=== PATIENT | female | born 1985 | race Caucasian/White ===

== ENCOUNTER → 2017-06-10 | Outpatient (CLI) | payer OTHER ==
[2017-06-10 17:52] LABS: Appearance,Urine Cloudy (Clear); Bilirubin,Urine Negative (Negative); Glucose,Urine (UA) Negative (Negative); Ketones,Urine Negative (Negative); Leukocyte Esterase,Urine Trace (Negative); Nitrite,Urine Negative (Negative); Particle Count 1855; Protein,Urine Negative (Negative); RBC,Urine <1 /hpf (0-5); Specific Gravity,Urine 1.002 (1.001-1.035); Squamous Epithelial Cell,Urine 5 /hpf (0-4); UA Billing (MACRO vs. MICRO) MICRO; Urobilinogen,Urine <2.0 mg/dL (<2.0); WBC,Urine 1 /hpf (0-5)
--- NOTE | 2017-06-11 07:16 | US ---
EXAMINATION TYPE: US pelvic complete DATE OF EXAM: 06/10/2017 COMPARISON: [facility] 2010 CLINICAL HISTORY: R10.2 Pelvic pain. Intermittent pelvic pain, bladder urgency; endometriosis, LMP ev chad 3 months per doctor via Carlo medication; menses started today TECHNIQUE: Transvaginal (TV) and Transabdominal (TA) Date of LMP: 06/10/2017 EXAM MEASUREMENTS: Uterus: 9.8 x 4.6 x 3.9 cm Endometrial Stripe: 0.4 cm Right Ovary: 2.3 x 2.4 x 1.3 cm Left Ovary: 2.8 x 1.6 x 1.9 cm Bladder: bilateral ureteral jets seen; post void volume wnl = 31.0ml 1. Uterus: Anteverted; Nabothian cyst in CX = 0.3 x 0.3 x 0.2cm 2. Endometrium: thickness is wnl. 3. Right Ovary: multiple small follicles; small hyperechoic focus in periphery at acoustic interface . 4. Left Ovary: small follicles Spectral, color and waveform doppler imaging shows good arterial and venous flow within the ovaries ; there is no evidence for ovarian torsion. 5. Bilateral Adnexa: wnl 6. Posterior cul-de-sac: wnl Post void urinary bladder residual of 30.1. IMPRESSION: 1. Unremarkable uterus, endometrial thickness, and ovaries. 2. Small urinary bladder postvoid residual is within normal limits at 31.0.
== END | disposition home or self-care (01) ==
LOC: RADUSWWP 15:05
PROVIDERS: ATTEND Obstetrics & Gynecology
DX: R10.2 Pelvic and perineal pain (principal)
CPT/HCPCS: 76830; 76856; 81001; 87086; 87491; 87591